=== PATIENT | male | born 1990 | race Caucasian/White ===

== ENCOUNTER 2017-02-17 02:02 | Inpatient (IN) | payer OTHER ==
[2017-02-17] MEDS ORDERED: NS 1,000 ML IV ONE (02:19)
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
[2017-02-17] MEDS ORDERED: IOPAMIDOL (ISOVUE-300) 100 ML BTL ONE (02:24)
[2017-02-17 02:25] LABS: % IMMATURE GRANULYOCYTES 0.5 % (0.0-1.1); ABSOLUTE IMMATURE GRANULOCYTES 0.09 10^3/uL (0.00-0.10); ADD DIFF? NO; ADD MORPH? NO; ADD SCAN? NO; ATYPICAL LYMPHOCYTE FLAG 0 (0-99); FRAGMENT RBC FLAG 0 (0-99); HEMOGLOBIN 14.2 g/dL (13.7-17.5); LEFT SHIFT FLG 0 (0-99); LIPEMIA HEMOLYSIS FLAG 90 (0-99); MEAN CELL HEMOGLOBIN 32.7 pg (27.9-34.1); MEAN CELL HEMOGLOBIN CONCENTR. 35.5 g/dL (32.4-36.7); MEAN CELL VOLUME 92.2 fL (81.5-99.8); MEAN PLATELET VOLUME 10.3 fL (8.7-11.7); PLATELET CLUMPS FLAG 0 (0-99); PLATELET COUNT 315 10^3/uL (150-400); RED BLOOD CELL COUNT 4.34 10^6/uL (4.40-6.38); RED CELL DISTRIBUTION WIDTH 12.6 % (11.5-15.2)
[2017-02-17] MEDS ORDERED: fentaNYL 100 MCG/2 ML INJ ONE (02:32)
[2017-02-17 02:36] LABS: INR 1.17 (0.83-1.16); PROTIME(PATIENT) 14.9 SEC (12.0-15.0)
[2017-02-17 02:37] LABS: APTT 22.1 SEC (23.0-38.0)
[2017-02-17] MEDS ORDERED: fentaNYL 100 MCG/2 ML INJ IVP ONE (02:40)
[2017-02-17 02:45] LABS: ANION GAP 15 mEq/L (8-16); CALCIUM 9.1 mg/dL (8.5-10.4); CARBON DIOXIDE 20 mEq/l (22-31); CHLORIDE 103 mEq/L (97-110); ETHANOL SERUM 149 mg/dL (0-10); GLOMERULAR FILTRATION RATE > 60; GLUCOSE 131 mg/dL (70-100); POTASSIUM 4.2 mEq/L (3.5-5.2); SODIUM 138 mEq/L (134-144)
[2017-02-17] MEDS ORDERED: ONDANSETRON 4 MG/2 ML VIAL IVP PRN (03:08)
[2017-02-17] MEDS ORDERED: HYDROCODONE/APAP 5/325 TAB PO PRN (03:08)
[2017-02-17] MEDS ORDERED: NALOXONE HCL 0.4 MG/ML INJ IVP PRN (03:08)
[2017-02-17] MEDS ORDERED: TDAP ADULT 0.5 ML INJ (BOOSTRIX) IM ONE ×2 (03:21→03:22)
[2017-02-17] MEDS ORDERED: LR 1,000 ML IV SCH (03:30)
[2017-02-17] MEDS: HYDROmorphONE/DILAUDID 2 MG/ML INJ IVP PRN ×3 (04:13→21:25)
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
--- NOTE | 2017-02-17 07:06 | SOAPPROG ---
SOAP Progress Note Assessment/Plan: Assessment:slept well. pain controlled-still in shoulders, less abdominal discomfort. c/o nausea. Afebrile. BP 120/60. P90. comfortable. abd dist, soft. grade 4 spleen-remains HD normal with min change in Hb. cont supportive care. ok to ambulate. clears when able. will consider repeat CT 48-72 hours to assess for pseudoaneurysm prior to discharge. Plan: 02/17/17 07:03 02/17/17 07:05 Objective: Vital Signs Temp Pulse Resp BP Pulse Ox 37.3 C 78 14 116/67 98 02/17/17 04:00 02/17/17 06:00 02/17/17 06:00 02/17/17 06:00 02/17/17 06:00 Laboratory Results 02/17/17 06:00 02/16/17 02/17/17 02/18/17 05:59 05:59 05:59 Intake Total 1060 Balance 1060 PT 14.9 SEC (12.0-15.0) 02/17/17 02:15 INR 1.17 (0.83-1.16) H 02/17/17 02:15 ICD10 Worksheet Patient Problems: Problems Problem Status Onset Hemoperitoneum Acute Splenic laceration Acute
[2017-02-17 09:07] LABS: COLOR YELLOW; LEUKOCYTE ESTERASE,URINE NEGATIVE (NEGATIVE); NITRITE,URINE NEGATIVE (NEGATIVE)
[2017-02-17 09:17] LABS: MUCUS TRACE /lpf (NONE-1+)
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
[2017-02-17] MEDS: ACETAMINOPHEN 325 MG TAB PO PRN ×2 (12:46→21:25)
[2017-02-18 05:36] LABS: HEMATOCRIT 31.6 % (40.0-51.0); HEMOGLOBIN 11.3 g/dL (13.7-17.5)
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
[2017-02-18 23:36] VITALS: RESP 16
[2017-02-19 06:22] LABS: HEMATOCRIT 32.8 % (40.0-51.0); HEMOGLOBIN 11.5 g/dL (13.7-17.5)
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
[2017-02-19 11:59] VITALS: BP 130/70; PULSE 72; TEMP 98.7; O2SAT 97
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
== END 2017-02-19 18:05 | disposition home or self-care (01) | DRG 815 ==
LOC: F2N 03:50 → F3N 02-18 14:04
PROVIDERS: ADMIT Surgery; ATTEND Surgery
DX: S36.032A Major laceration of spleen, initial encounter (principal); S36.899A Unspecified injury of other intra-abdominal organs, initial encounter; I95.9 Hypotension, unspecified; V18.0XXA Pedal cycle driver injured in noncollision transport accident in nontraffic accident, initial encounter; Y92.414 Local residential or business street as the place of occurrence of the external cause
CPT/HCPCS: 82947-QW; 92523-GN; 96374; 97116-GP; 97163-GP; 97165-GO; 97535-GO; G0480; J1170; J2405; J3010; Q9967